=== PATIENT | male | born 1975 | race Caucasian/White ===

== ENCOUNTER 2019-12-30 19:46 | Emergency (ER) | payer BC ==
[~2019-12-30] VITALS: Ht 177.8 cm; Wt 113.4 kg
[2019-12-30 20:12] VITALS: BP 130/72; Ht 177.8 cm; Wt 113.4 kg
== END 2019-12-30 21:31 | disposition left against medical advice (07) ==
LOC: ED 19:46
DX: M54.5 Low back pain (principal)